=== PATIENT | female | born 1965 | race Hispanic/Latino ===

== ENCOUNTER 2018-11-26 16:34 | Emergency (ER) | payer BC, OTHER ==
[2018-11-26] MEDS ORDERED: DiphenhydrAMINE HCL 50 MG/ML VIAL ONE (18:23)
[2018-11-26] MEDS ORDERED: KETOROLAC TROMETHAMINE 30MG/ML ONE (18:24)
[2018-11-26 18:28] LABS: BASOPHILS % (AUTO) 0.3 % (0.0-5.0); LYMPHOCYTES % (AUTO) 8.2 % (21.0-51.0); MEAN CORPUSCULAR HEMOGLOBIN 26.7 pg (27.0-33.0); MEAN CORPUSCULAR HGB CONC 33.7 g/dL (32.0-36.0); MEAN CORPUSCULAR VOLUME 79.3 fL (79-99); MONOCYTES % (AUTO) 6.7 % (3.0-13.0); NEUTROPHILS % (AUTO) 84.8 % (40.0-77.0); PLATELET COUNT (AUTO) 214 K/uL (130-400); RED BLOOD CELL COUNT(AUTO) 4.41 MIL/uL (4.00-5.50); RED CELL DISTRIBUTION WIDTH 15.3 % (11.0-15.5); WHITE BLOOD COUNT (AUTO) 3.7 K/uL (4.8-10.8)
[2018-11-26 18:39] LABS: CREATININE 1.2 mg/dL (0.5-1.5); POTASSIUM 3.7 mmol/L (3.5-5.1)
[2018-11-26 18:44] LABS: ALBUMIN 3.8 g/dL (3.5-5.0); BILIRUBIN,TOTAL 0.3 mg/dL (0.2-1.0); TOTAL PROTEIN, SERUM 7.9 g/dL (6.0-8.3)
[2018-11-26] MEDS ORDERED: IOHEXOL-350 50ML VIAL IV ONE (18:55)
[2018-11-26 19:47] LABS: APPEARANCE,URINE Clear (CLEAR); BILIRUBIN,URINE Negative (NEGATIVE); COLOR,URINE Yellow (YELLOW); GLUCOSE, URINE (UA) Negative (NEGATIVE); KETONES,URINE Negative (NEGATIVE); LEUKOCYTE ESTERASE ,URINE Moderate (NEGATIVE); NITRATE,URINE Negative (NEGATIVE); OCCULT BLOOD,URINE Negative (NEGATIVE); PH,URINE 6.5 (5.0-8.0); PROTEIN,URINE Negative (NEGATIVE)
[2018-11-26] MEDS ORDERED: CLINDAMYCIN 600 MG/D5% WATER 50 ML IV ONE (19:57)
[2018-11-26 20:15] LABS: BACTERIA,URINE Few /HPF (None Seen); RBC,URINE 0-1 /HPF (0-1)
== END 2018-11-26 21:17 | disposition home or self-care (01) ==
LOC: EDH 16:34
DX: L03.211 Cellulitis of face (principal); I10 Essential (primary) hypertension; Z88.0 Allergy status to penicillin
CPT/HCPCS: 36415; 70487; 80053; 81001; 85025; 87040; 96365; 96375; 99285; J1200; J1885; J3490; Q9967

== ENCOUNTER 2020-04-06 09:00 | Inpatient (IN) | payer BC ==
[~2020-04-06] VITALS: Ht 165.1 cm; Wt 116.7 kg
[2020-04-06] MEDS ORDERED: ONDANSETRON HCL 4 MG/2 ML VIAL ONE ×2 (09:32→21:06)
[2020-04-06 09:46] LABS: BASOPHILS % (AUTO) 0.6 % (0.0-5.0); EOSINOPHILS % (AUTO) 1.6 % (0.0-8.0); HEMATOCRIT 37.9 % (36-48); LYMPHOCYTES % (AUTO) 26.9 % (21.0-51.0); MEAN CORPUSCULAR HEMOGLOBIN 29.5 pg (27.0-33.0); MEAN CORPUSCULAR HGB CONC 33.2 g/dL (32.0-36.0); MEAN CORPUSCULAR VOLUME 88.8 fL (79-99); MONOCYTES % (AUTO) 4.5 % (3.0-13.0); NEUTROPHILS % (AUTO) 65.6 % (40.0-77.0); PLATELET COUNT (AUTO) 276 K/uL (130-400); RED BLOOD CELL COUNT(AUTO) 4.27 MIL/uL (4.00-5.50); RED CELL DISTRIBUTION WIDTH 13.1 % (11.0-15.5)
[2020-04-06 10:16] LABS: ALBUMIN 3.3 g/dL (3.5-5.0); BILIRUBIN,TOTAL 0.3 mg/dL (0.2-1.0); POTASSIUM 3.5 mmol/L (3.5-5.1); TOTAL PROTEIN, SERUM 7.5 g/dL (6.0-8.3)
[2020-04-06] MEDS ORDERED: SODIUM CHLORIDE 0.9% 1000ML 1,000 ML IV ONE (10:29)
[2020-04-06 10:54] LABS: ABG BASE EXCESS 0.4 mmol/L (-2.0-3.0); ABG OXYGEN SATURATION 94.8 % (95.0-99.0); ABG PCO2 40 mmHg (32-45)
[2020-04-06] MEDS ORDERED: ALBUTEROL INHALER 90MCG/INH IH ONE (12:03)
[2020-04-06] MEDS ORDERED: DOXYCYCLINE 100MG+NS 250ML 250 ML IV ONE (12:04)
[2020-04-06 12:33] LABS: MAGNESIUM 2.1 mg/dL (1.80-2.40)
[2020-04-06] MEDS ORDERED: ACETAMINOPHEN 325 MG TAB PO PRN (13:30)
[2020-04-06] MEDS ORDERED: ERGOCALCIFEROL (VITAMIN D2) 50,000 UNIT CAPSULE PO ONE (13:30)
[2020-04-06] MEDS ORDERED: ONDANSETRON HCL 4 MG/2 ML VIAL IV PRN (13:30)
[2020-04-06] MEDS: CEFTRIAXONE SODIUM 1 GM IVP SCH (13:30)
[2020-04-06] MEDS ORDERED: ALBUTEROL INHALER 90MCG/INH IH PRN (13:30)
[2020-04-06] MEDS ORDERED: HYDRALAZINE HCL 20 MG/ML VIAL IV PRN (13:30)
[2020-04-06] MEDS: METHYLPREDNISOLONE SOD SUCC 40MG/ML 1ML IVP SCH ×2 (14:00→21:00)
[2020-04-06] MEDS: BENZONATATE 100 MG CAPSULE PO SCH ×2 (14:00→21:00)
[2020-04-06 14:10] LABS: INR 0.93 (0.85-1.15); PARTIAL THROMBOPLASTIN TIME 28.5 SEC (26.3-35.5); PROTHROMBIN TIME 10.1 SEC (9.6-11.6)
[2020-04-06] MEDS ORDERED: METHYLPREDNISOLONE SOD SUCC 40MG/ML 1ML ONE ×2 (14:11→23:23)
[2020-04-06] MEDS ORDERED: ERGOCALCIFEROL (VITAMIN D2) 50,000 UNIT CAPSULE ONE (14:12)
[2020-04-06] MEDS ORDERED: CEFTRIAXONE SODIUM 1 GM ONE ×2 (14:12→14:17)
[2020-04-06] MEDS ORDERED: SODIUM CHLORIDE 0.9% 100 ML IV ONE (14:13)
[2020-04-06] MEDS ORDERED: ACETAMINOPHEN 325 MG TAB ONE ×2 (14:30→21:07)
[2020-04-06] MEDS ORDERED: IOHEXOL 350 MG/ML 100ML INFUS..BTL IV ONE (15:41)
[2020-04-06] MEDS: INSULIN HUMULIN R 100 UNIT/ML 3ML SQ SCH ×2 (16:30→21:00)
[2020-04-06] MEDS ORDERED: FAMOTIDINE 20MG TAB 20 MG TAB ONE (20:05)
[2020-04-06] MEDS ORDERED: BENZONATATE 100 MG CAPSULE PO ONE ×2 (20:05→20:08)
[2020-04-06] MEDS ORDERED: ENOXAPARIN SODIUM 40 MG/0.4 ML SYRINGE SQ ONE (20:06)
[2020-04-06] MEDS: FAMOTIDINE 20MG TAB 20 MG TAB PO SCH (21:00)
[2020-04-06] MEDS: ACETYLCYSTEINE 600 MG CAPSULE PO SCH (21:00)
[2020-04-06] MEDS: DOXYCYCLINE HYCLATE 100 MG TABLET PO SCH (21:00)
[2020-04-06] MEDS ORDERED: INSULIN HUMULIN R 100 UNIT/ML 3ML ONE (21:08)
[2020-04-06] MEDS ORDERED: DOXYCYCLINE HYCLATE 100 MG TABLET PO ONE (23:31)
[2020-04-07] MEDS ORDERED: HYDROXYZINE HCL 10 MG TABLET ONE (01:11)
[2020-04-07] MEDS: CEFTRIAXONE SODIUM 1 GM IVP SCH ×3 (01:30→20:41)
[2020-04-07 02:10] VITALS: BP 158/69
[2020-04-07] MEDS ORDERED: HYDROXYZINE HCL 25 MG TABLET PO ONE (02:45)
[2020-04-07 05:08] LABS: CRP QUANTITATIVE 15.8 mg/L (0.00-9.0)
[2020-04-07] MEDS: INSULIN HUMULIN R 100 UNIT/ML 3ML SQ SCH ×4 (05:50→21:00)
[2020-04-07 08:00] VITALS: BP 132/69
[2020-04-07] MEDS: ASCORBIC ACID 500 MG TAB PO SCH (09:02)
[2020-04-07] MEDS: FAMOTIDINE 20MG TAB 20 MG TAB PO SCH ×2 (09:02→20:42)
[2020-04-07] MEDS: METHYLPREDNISOLONE SOD SUCC 40MG/ML 1ML IVP SCH ×3 (09:02→20:42)
[2020-04-07] MEDS: ACETYLCYSTEINE 600 MG CAPSULE PO SCH ×2 (09:02→20:43)
[2020-04-07] MEDS: DOXYCYCLINE HYCLATE 100 MG TABLET PO SCH ×2 (09:03→20:42)
[2020-04-07] MEDS: BENZONATATE 100 MG CAPSULE PO SCH ×3 (09:03→20:43)
[2020-04-07] MEDS: ENOXAPARIN SODIUM 40 MG/0.4 ML SYRINGE SQ SCH (09:03)
[2020-04-07] MEDS ORDERED: FLUT1AER IH (09:29)
[2020-04-07] MEDS ORDERED: ALBU90AE2 IH (09:29)
[2020-04-07] MEDS ORDERED: LISI1TAB51 PO (09:29)
[2020-04-07] MEDS ORDERED: METF-444 PO (09:29)
[2020-04-07] MEDS: LISINOPRIL 20 MG TABLET PO SCH (09:45)
[2020-04-07] MEDS: HYDROCHLOROTHIAZIDE 25 MG TABLET PO SCH (09:45)
--- NOTE | 2020-04-07 10:31 | NUR ---
CHART CHECK COMPLETED. Pt IS A 54 Y.O. FEMALE ADMITTED SECONDARY TO COVID 19 POSITIVE, ACUTE RESPIRATORY FAILURE. PT HAS A PAST MEDICAL HISTORY SIGNIFICANT FOR ASTHMA, HYPERTENSION, AND DIABETES MELLITUS. Pt CURRENTLY ON REGULAR TEXTURE, THIN LIQUIDS DIET (CONSISTENT CARB). PLEASE REQUEST A FORMAL SPEECH/SWALLOW EVALUATION IF Pt PRESENTS WITH +S/S OF ASPIRATION SUCH COUGH RESPONSE, THROAT CLEAR OR WET VOCAL QUALITY DURING P.O. INTAKE. Addendum: 04/07/20 at 1048 by TAURUS TIERNEY, SPT ST Amended: Links added.
--- NOTE | 2020-04-07 10:58 | NUR ---
I HAVE SWABED PT'S RIGHT NARE FOR COVID TEST AND SENT TO LAB
[2020-04-07 12:00] VITALS: BP 108/69
[2020-04-07] MEDS: ZINC SULFATE 220 CAPSULE PO SCH (12:20)
[2020-04-07] MEDS: ACETAMINOPHEN 325 MG TAB PO PRN (15:00)
[2020-04-07 16:00] VITALS: BP 132/65
--- NOTE | 2020-04-07 17:24 | NUR ---
SHIFT SUMMARY; PT HAS REMAINED ON O2 2LNC TOLERATING WELL 96% OR GREATER AT REST; TRIAL ON ROOM AIR DONE AND PT SAT WAS 89 TO 94%; SHE EASILY TIRES WHEN AMBULATING; SHE DOES WALK TO BATHROOM ON OWN AND SIT UP IN CHAIR; COVID SWAB SENT IN AM PER DR MUSE REQUEST; PENDING RESULTS OF RETEST; PT BATHED SELF TODAY AND SPOKE OFTEN ON THE PHONE TO HER FAMILY.
[2020-04-07] MEDS: LACTULOSE 20 GM/30 ML UDCUP PO PRN (18:33)
--- NOTE | 2020-04-07 18:50 | NUR ---
PT C/O CONSTIPATION, FIRST PRUNE JUICE GIVEN THEN PT STATED PRUNE JUICE WOULD NOT BE ENOUGH SO LACTULOSE GIVEN.
[2020-04-07 19:00] VITALS: BP 131/74
[2020-04-07] MEDS ORDERED: INSULIN GLARGINE 100 UNITS/ML 10 ML VIAL SQ SCH (21:00)
[2020-04-08] VITALS (7 sets, daily range): BP systolic 123–146; BP diastolic 54–80
[2020-04-08] MEDS: INSULIN HUMULIN R 100 UNIT/ML 3ML SQ SCH ×4 (05:56→21:00)
[2020-04-08] MEDS: LACTULOSE 20 GM/30 ML UDCUP PO PRN (06:40)
[2020-04-08 06:50] LABS: BASOPHILS % (AUTO) 0.1 % (0.0-5.0); HEMATOCRIT 34.8 % (36-48); LYMPHOCYTES % (AUTO) 11.8 % (21.0-51.0); MEAN CORPUSCULAR HEMOGLOBIN 29.9 pg (27.0-33.0); MEAN CORPUSCULAR HGB CONC 33.3 g/dL (32.0-36.0); MEAN CORPUSCULAR VOLUME 89.7 fL (79-99); MONOCYTES % (AUTO) 3.1 % (3.0-13.0); NEUTROPHILS % (AUTO) 84.1 % (40.0-77.0); PLATELET COUNT (AUTO) 277 K/uL (130-400); RED BLOOD CELL COUNT(AUTO) 3.88 MIL/uL (4.00-5.50); RED CELL DISTRIBUTION WIDTH 13.2 % (11.0-15.5)
[2020-04-08 07:20] LABS: ALBUMIN 3.1 g/dL (3.5-5.0); BILIRUBIN,TOTAL 0.2 mg/dL (0.2-1.0); CRP QUANTITATIVE 5.5 mg/L (0.00-9.0); THYROID STIMULATING HORMONE 0.55 uIU/mL (0.36-3.74)
[2020-04-08 07:49] LABS: HEMOGLOBIN A1C 6.6 % (4.0-6.0)
[2020-04-08] MEDS: CEFTRIAXONE SODIUM 1 GM IVP SCH ×2 (09:13→20:59)
[2020-04-08] MEDS: ACETYLCYSTEINE 600 MG CAPSULE PO SCH ×2 (09:13→20:59)
[2020-04-08] MEDS: BENZONATATE 100 MG CAPSULE PO SCH ×3 (09:24→20:59)
[2020-04-08] MEDS: ASCORBIC ACID 500 MG TAB PO SCH (09:24)
[2020-04-08] MEDS: DOXYCYCLINE HYCLATE 100 MG TABLET PO SCH ×2 (09:25→20:59)
[2020-04-08] MEDS: FAMOTIDINE 20MG TAB 20 MG TAB PO SCH ×2 (09:25→20:59)
[2020-04-08] MEDS: HYDROCHLOROTHIAZIDE 25 MG TABLET PO SCH (09:25)
[2020-04-08] MEDS: LISINOPRIL 20 MG TABLET PO SCH (09:25)
[2020-04-08] MEDS: METHYLPREDNISOLONE SOD SUCC 40MG/ML 1ML IVP SCH ×3 (09:26→20:59)
[2020-04-08] MEDS: ENOXAPARIN SODIUM 40 MG/0.4 ML SYRINGE SQ SCH (09:26)
[2020-04-08] MEDS: FLUTICASONE/VILANTEROL 1 EACH AER.POW.BA IH SCH (09:26)
[2020-04-08] MEDS: ACETAMINOPHEN 325 MG TAB PO PRN ×2 (09:40→17:04)
[2020-04-08] MEDS: ZINC SULFATE 220 CAPSULE PO SCH (12:12)
--- NOTE | 2020-04-08 18:51 | NUR ---
DCP CM spoke to pt's spouse discussed dc plans. Pt is independent prior to admission, lives at home and daughter. Denies any equipments/services. Feels safe to go back home, still drives spouse and daughter able to assist with transportation and needs as necessary. DC plan to home once stable. CM to cont to follow up. Addendum: 04/08/20 at 1853 by CAREY WEBER LVN CM Amended: Links added.
[2020-04-08] MEDS ORDERED: INSULIN GLARGINE 100 UNITS/ML 10 ML VIAL SQ SCH (21:00)
--- NOTE | 2020-04-08 21:25 | NUR ---
pt with complaint of chest pain radiating to right arm; pts vitals BP = 153/72, HR = 71, T = 97.9, O2 = 94% on RA and RR = 26; EKG performed at this time resulting NORMAL SINUS RHYTHM and tele monitor contacted and stated pt is sinus rhythm at 73; 2L O2 nasal cannula added, Troponin lab ordered stat and hospitalist paged at [phone]. Jenae RN Hospitalist (Suzanne Chapman) returned page at [phone] and informed of pts complaint (pt now states pain has decreased form 12/25 to 2/10); BUFFING WHEEL RAKER stated to administer Atarax 25mg PO x1 NOW, order nitro patch 0.5mg topical q8 PRN and cardiac panel in the morning if pts Troponin were positive; pt administered Atarax 25mg PO and completed Troponin lab = 0.04; pt resting in bed, no distress noted. Jenae RN
[2020-04-08] MEDS ORDERED: HYDROXYZINE HCL 25 MG TABLET PO SCH (22:00)
[2020-04-09] MEDS ORDERED: NITROGLYCERIN 1GM/1 INCH PACKET TD PRN (00:45)
[2020-04-09 03:48] VITALS: BP 127/47
[2020-04-09 05:27] LABS: BASOPHILS % (AUTO) 0.1 % (0.0-5.0); HEMATOCRIT 37.4 % (36-48); LYMPHOCYTES % (AUTO) 10.8 % (21.0-51.0); MEAN CORPUSCULAR HEMOGLOBIN 29.4 pg (27.0-33.0); MEAN CORPUSCULAR HGB CONC 33.2 g/dL (32.0-36.0); MEAN CORPUSCULAR VOLUME 88.6 fL (79-99); MONOCYTES % (AUTO) 2.4 % (3.0-13.0); NEUTROPHILS % (AUTO) 85.6 % (40.0-77.0); PLATELET COUNT (AUTO) 321 K/uL (130-400); RED BLOOD CELL COUNT(AUTO) 4.22 MIL/uL (4.00-5.50); RED CELL DISTRIBUTION WIDTH 13.2 % (11.0-15.5); WHITE BLOOD COUNT (AUTO) 13.5 K/uL (4.8-10.8)
[2020-04-09] MEDS: INSULIN HUMULIN R 100 UNIT/ML 3ML SQ SCH ×2 (05:50→12:05)
[2020-04-09 06:00] LABS: ALBUMIN 3.3 g/dL (3.5-5.0); BILIRUBIN,TOTAL 0.3 mg/dL (0.2-1.0); CRP QUANTITATIVE 4.6 mg/L (0.00-9.0); POTASSIUM 3.7 mmol/L (3.5-5.1); TOTAL PROTEIN, SERUM 7.6 g/dL (6.0-8.3)
[2020-04-09 08:00] VITALS: BP 151/77
[2020-04-09] MEDS: ACETYLCYSTEINE 600 MG CAPSULE PO SCH (08:40)
[2020-04-09] MEDS: DOXYCYCLINE HYCLATE 100 MG TABLET PO SCH (08:41)
[2020-04-09] MEDS: FAMOTIDINE 20MG TAB 20 MG TAB PO SCH (08:41)
[2020-04-09] MEDS: LISINOPRIL 20 MG TABLET PO SCH (08:41)
[2020-04-09] MEDS: ASCORBIC ACID 500 MG TAB PO SCH (08:41)
[2020-04-09] MEDS: CEFTRIAXONE SODIUM 1 GM IVP SCH (08:42)
[2020-04-09] MEDS: HYDROCHLOROTHIAZIDE 25 MG TABLET PO SCH (08:42)
[2020-04-09] MEDS: ENOXAPARIN SODIUM 40 MG/0.4 ML SYRINGE SQ SCH (08:45)
[2020-04-09] MEDS: FLUTICASONE/VILANTEROL 1 EACH AER.POW.BA IH SCH (08:47)
[2020-04-09] MEDS: BENZONATATE 100 MG CAPSULE PO SCH ×2 (08:47→14:05)
[2020-04-09] MEDS: METHYLPREDNISOLONE SOD SUCC 40MG/ML 1ML IVP SCH ×2 (08:47→14:05)
--- NOTE | 2020-04-09 10:25 | NUR ---
MD MEAD REVIEWED FOR WORK RELEASE FOR [employer]. WILL CONTACT FOR EMAIL TO SEND . Addendum: 04/09/20 at 1038 by HOWIE RENDON RN CM Amended: Links added.
[2020-04-09 11:00] VITALS: BP 146/69
[2020-04-09] MEDS: ZINC SULFATE 220 CAPSULE PO SCH (12:04)
[2020-04-09] MEDS ORDERED: AZIT500T2 PO (15:51)
[2020-04-09] MEDS ORDERED: DEXA6TAB PO (15:51)
[2020-04-09 16:00] VITALS: BP 158/81
--- NOTE | 2020-04-09 16:10 | NUR ---
follow up EKG completed. Pt has denied chest discomfort, pt has remained on room air throughout shift sp02 has been 96-97%. no respiratory distress observed or reported. Discharge orders entered by DELIVERY DEPARTMENT SUPERVISOR. pt updated, pt able to notify family. pt requesting medication for boils on left abdomen, per pt she reported skin boils at time of admission but failed to let physician know upon rounding. paged DELIVERY DEPARTMENT SUPERVISOR for notification, spoke with DELIVERY DEPARTMENT SUPERVISOR will order additional ATB and advised pt to follow up with primary care physician.
[2020-04-09] MEDS ORDERED: DOXY100C2 PO (16:15)
== END 2020-04-09 19:51 | disposition home or self-care (01) | DRG 177 ==
LOC: EDH 09:00 → EDHIP 13:24 → 4DH 04-07 01:03
PROVIDERS: ADMIT Family Medicine; ATTEND Family Medicine
DX: U07.1 COVID-19 (principal); J12.89 Other viral pneumonia; J96.01 Acute respiratory failure with hypoxia; Z68.41 Body mass index [BMI] 40.0-44.9, adult; L03.311 Cellulitis of abdominal wall; E11.9 Type 2 diabetes mellitus without complications; I10 Essential (primary) hypertension; J45.909 Unspecified asthma, uncomplicated; E66.01 Morbid (severe) obesity due to excess calories; L73.9 Follicular disorder, unspecified; F41.9 Anxiety disorder, unspecified; R53.81 Other malaise; Z83.3 Family history of diabetes mellitus
CPT/HCPCS: 36415; 36600; 71045; 71275; 80053; 82550; 82728; 82803; 82948; 83036; 83605; 83615; 83735; 84100; 84145; 84443; 84484; 85025; 85378; 85610; 85730; 86140; 87040; 87486; 87581; 87633; 87798; 93005; 94760; 99291; G0378; J0696; J1650; J1815; J2405; J2920; J3490; J7030; Q9967; U0003

== ENCOUNTER 2022-08-17 21:00 | Emergency (ER) | payer BC ==
[~2022-08-17] VITALS: Ht 167.6 cm; Wt 96.3 kg
[~2022-08-17 21:00] MED LIST: ALBU90AE2 IH; AZIT500T2 PO; DEXA6TAB PO; DOXY100C5 PO; FLUT1AER IH; LISI1TAB51 PO; METF-444 PO
[2022-08-17] MEDS ORDERED: ALBUTEROL INHALER 90MCG/INH IH ONE (21:30)
[2022-08-17 21:47] LABS: BASOPHILS % (AUTO) 0.8 % (0.0-5.0); EOSINOPHILS % (AUTO) 1.9 % (0.0-8.0); HEMATOCRIT 38.6 % (36-48); LYMPHOCYTES % (AUTO) 18.8 % (21.0-51.0); MEAN CORPUSCULAR HEMOGLOBIN 30.1 pg (27.0-33.0); MONOCYTES % (AUTO) 5.6 % (3.0-13.0); NEUTROPHILS % (AUTO) 71.6 % (40.0-77.0); PLATELET COUNT (AUTO) 267 K/uL (130-400); RED BLOOD CELL COUNT(AUTO) 4.49 MIL/uL (4.00-5.50); RED CELL DISTRIBUTION WIDTH 12.8 % (11.0-15.5); WHITE BLOOD COUNT (AUTO) 9.8 K/uL (4.8-10.8)
[2022-08-17 21:58] LABS: APPEARANCE,URINE CLEAR (CLEAR); BILIRUBIN,URINE NEGATIVE (NEGATIVE); COLOR,URINE LIGHT-YELLOW (YELLOW); GLUCOSE, URINE (UA) NEGATIVE (NEGATIVE); KETONES,URINE NEGATIVE (NEGATIVE); LEUKOCYTE ESTERASE ,URINE 75 Leu/uL (NEGATIVE); NITRATE,URINE NEGATIVE (NEGATIVE); OCCULT BLOOD,URINE NEGATIVE (NEGATIVE); PH,URINE 5.5 (5.0-8.0); PROTEIN,URINE NEGATIVE (NEGATIVE); UROBILINOGEN,URINE 0.2 mg/dL (0.2-1.0)
[2022-08-17 22:03] LABS: BACTERIA,URINE RARE /HPF (None Seen); MUCUS,URINE RARE LPF (None Seen); RBC,URINE 0-1 /HPF (0-1)
[2022-08-17 22:05] LABS: POTASSIUM 3.8 mmol/L (3.5-5.1)
[2022-08-17 22:20] LABS: TOTAL PROTEIN, SERUM 7.8 g/dL (6.0-8.3)
[2022-08-17] MEDS ORDERED: GUAIFENESIN-CODEINE 5 ML SYRUP PO ONE (22:30)
[2022-08-17] MEDS ORDERED: AUD IH (23:25)
[2022-08-17 23:34] VITALS: BP 140/69
== END 2022-08-17 23:37 | disposition home or self-care (01) ==
LOC: EDH 21:00
DX: J98.8 Other specified respiratory disorders (principal); J98.01 Acute bronchospasm; B97.89 Other viral agents as the cause of diseases classified elsewhere; E11.9 Type 2 diabetes mellitus without complications; I10 Essential (primary) hypertension; Z79.51 Long term (current) use of inhaled steroids; Z79.52 Long term (current) use of systemic steroids; Z79.84 Long term (current) use of oral hypoglycemic drugs; Z90.710 Acquired absence of both cervix and uterus; Z20.822 Contact with and (suspected) exposure to COVID-19; Z88.0 Allergy status to penicillin
CPT/HCPCS: 99284; 71045; 87635; 84484; 80053; 85025; 87040 ×2; 87077; 87088; 87186; 87804 ×2; 83605; 81001; 36415; 93005; C9803

== ENCOUNTER 2022-12-19 10:09 | Inpatient (IN) | payer BC, OTHER ==
[~2022-12-19] VITALS: Ht 170.2 cm; Wt 96.1 kg
[~2022-12-19 10:09] MED LIST changes: +AUD IH
[2022-12-19 10:33] LABS: BASOPHILS % (AUTO) 0.7 % (0.0-5.0); EOSINOPHILS % (AUTO) 1.3 % (0.0-8.0); HEMATOCRIT 38.6 % (36-48); LYMPHOCYTES % (AUTO) 30.8 % (21.0-51.0); MEAN CORPUSCULAR HEMOGLOBIN 28.6 pg (27.0-33.0); MEAN CORPUSCULAR HGB CONC 34.5 g/dL (32.0-36.0); NEUTROPHILS % (AUTO) 61.9 % (40.0-77.0); PLATELET COUNT (AUTO) 190 K/uL (130-400); RED BLOOD CELL COUNT(AUTO) 4.65 MIL/uL (4.00-5.50); RED CELL DISTRIBUTION WIDTH 12.3 % (11.0-15.5); WHITE BLOOD COUNT (AUTO) 9.5 K/uL (4.8-10.8)
[2022-12-19 10:48] LABS: CREATININE 0.9 mg/dL (0.5-1.5); POTASSIUM 3.6 mmol/L (3.5-5.1)
[2022-12-19 10:50] LABS: INR 0.95 (0.85-1.15); PROTHROMBIN TIME 10.4 SEC (9.6-11.6)
[2022-12-19 10:51] LABS: PARTIAL THROMBOPLASTIN TIME 29.1 SEC (26.3-35.5)
[2022-12-19 10:56] LABS: ALBUMIN 3.8 g/dL (3.5-5.0); TOTAL PROTEIN, SERUM 7.6 g/dL (6.0-8.3)
[2022-12-19 11:07] LABS: B-TYPE NATRIURETIC PEPTIDE 31 pg/mL (0-100)
[2022-12-19] MEDS ORDERED: IOHEXOL 350 MG/ML 100ML INFUS..BTL IV ONE (11:16)
[2022-12-19] MEDS ORDERED: ASPIRIN 81MG CHEW TAB PO ONE (12:00)
[2022-12-19] MEDS ORDERED: ONDANSETRON 4MG INJ IVP PRN (12:30)
[2022-12-19] MEDS ORDERED: ACETAMINOPHEN 325 MG TAB PO PRN (12:30)
[2022-12-19 14:10] LABS: HEMOGLOBIN A1C 6.5 % (4.0-6.0)
[2022-12-19] MEDS ORDERED: POTASSIUM CHLORIDE 10% ELIXIR 20 MEQ/15 ML UDCUP PO PRN (15:00)
[2022-12-19] MEDS ORDERED: MAGNESIUM 2GM PREMIX 50ML 50 ML IV PRN (15:00)
[2022-12-19] MEDS ORDERED: LIDOCAINE HCL-MPF 1% 2ML VIAL IV PRN (15:00)
[2022-12-19] MEDS ORDERED: POTASSIUM CHLORIDE 20MEQ/100ML 100 ML IV PRN (15:00)
[2022-12-19] MEDS: NITROGLYCERIN 1GM OINT 1 INCH/1GM TD SCH ×2 (15:20→23:25)
[2022-12-19 15:27] LABS: CHOLESTEROL 159 mg/dL (<200); HDL CHOLESTEROL 34 mg/dL (35-85); LDL DIRECT 104 mg/dL (0-99); TRIGLYCERIDES 124 mg/dL (30-200)
[2022-12-19] MEDS: INSULIN HUMULIN R 100 UNIT/ML 3ML SQ SCH ×2 (16:29→20:59)
[2022-12-19] MEDS: HEPARIN 5,000 UNIT VIAL SQ SCH (16:31)
[2022-12-19] MEDS: ATORVASTATIN 40 MG TABLET PO SCH (20:07)
[2022-12-19 20:59] VITALS: BP 104/68
[2022-12-19] MEDS: ACETAMINOPHEN 325 MG TAB PO PRN (21:33)
[2022-12-20] VITALS (7 sets, daily range): BP systolic 120–174; BP diastolic 48–97
[2022-12-20] MEDS: HEPARIN 5,000 UNIT VIAL SQ SCH ×3 (04:41→20:26)
[2022-12-20 05:53] LABS: HEMATOCRIT 37.8 % (36-48); MEAN CORPUSCULAR HEMOGLOBIN 28.7 pg (27.0-33.0); MEAN CORPUSCULAR HGB CONC 34.7 g/dL (32.0-36.0); MEAN CORPUSCULAR VOLUME 82.7 fL (79-99); RED BLOOD CELL COUNT(AUTO) 4.57 MIL/uL (4.00-5.50); RED CELL DISTRIBUTION WIDTH 12.3 % (11.0-15.5); WHITE BLOOD COUNT (AUTO) 8.5 K/uL (4.8-10.8)
[2022-12-20 06:08] LABS: ALBUMIN 3.6 g/dL (3.5-5.0); CREATININE 0.9 mg/dL (0.5-1.5); POTASSIUM 3.7 mmol/L (3.5-5.1); TOTAL PROTEIN, SERUM 7.3 g/dL (6.0-8.3)
[2022-12-20] MEDS: NITROGLYCERIN 1GM OINT 1 INCH/1GM TD SCH (06:10)
[2022-12-20] MEDS: INSULIN HUMULIN R 100 UNIT/ML 3ML SQ SCH ×4 (06:10→21:00)
[2022-12-20 06:11] LABS: INR 0.95 (0.85-1.15); PROTHROMBIN TIME 10.4 SEC (9.6-11.6)
[2022-12-20] MEDS ORDERED: ASPIRIN 81 MG EC TAB PO SCH (09:00)
[2022-12-20] MEDS ORDERED: CLOPIDOGREL 75MG TAB PO SCH (09:00)
[2022-12-20] MEDS: ASPIRIN 325MG EC TAB PO SCH (09:02)
[2022-12-20] MEDS: FAMOTIDINE 20MG VIAL IV SCH ×2 (09:02→22:47)
[2022-12-20] MEDS: ACETAMINOPHEN 325 MG TAB PO PRN ×2 (09:04→22:54)
[2022-12-20] MEDS: ATORVASTATIN 40 MG TABLET PO SCH (22:47)
[2022-12-20] MEDS: KCL 20 MEQ ERTAB PO PRN (22:48)
[2022-12-21] MEDS: INSULIN HUMULIN R 100 UNIT/ML 3ML SQ SCH ×4 (01:04→21:00)
[2022-12-21 02:56] LABS: APPEARANCE,URINE CLEAR (CLEAR); BILIRUBIN,URINE NEGATIVE (NEGATIVE); COLOR,URINE LIGHT-YELLOW (YELLOW); GLUCOSE, URINE (UA) NEGATIVE (NEGATIVE); KETONES,URINE NEGATIVE (NEGATIVE); LEUKOCYTE ESTERASE ,URINE 25 Leu/uL (NEGATIVE); NITRATE,URINE NEGATIVE (NEGATIVE); OCCULT BLOOD,URINE NEGATIVE (NEGATIVE); PROTEIN,URINE NEGATIVE (NEGATIVE); UROBILINOGEN,URINE 0.2 mg/dL (0.2-1.0)
[2022-12-21 02:59] LABS: BACTERIA,URINE FEW /HPF (None Seen); MUCUS,URINE RARE LPF (None Seen); RBC,URINE 0-1 /HPF (0-1); SQUAMOUS EPITHELIAL CELL,UR RARE /HPF (0-2)
[2022-12-21 03:32] VITALS: BP 163/76
[2022-12-21] MEDS: MORPHINE 2 MG SYG IVP PRN ×3 (03:57→23:21)
[2022-12-21] MEDS ORDERED: NITROGLYCERIN 1GM OINT 1 INCH/1GM TD ONE (04:00)
[2022-12-21] MEDS ORDERED: ASPIRIN 81MG CHEW TAB PO ONE (04:00)
[2022-12-21 08:00] VITALS: BP 145/84
[2022-12-21] MEDS: ASPIRIN 325MG EC TAB PO SCH (08:03)
[2022-12-21] MEDS: FAMOTIDINE 20MG VIAL IV SCH ×2 (08:39→22:41)
[2022-12-21] MEDS ORDERED: REGADENOSON 0.4 MG/5 ML PF SYG IVP SCH (09:00)
[2022-12-21 12:00] VITALS: BP 138/75
[2022-12-21] MEDS ORDERED: ATOR40TA69 PO (12:12)
[2022-12-21] MEDS ORDERED: ASPI-891 PO (12:12)
[2022-12-21] MEDS: HYDROCHLOROTHIAZIDE 25 MG TABLET PO SCH (14:34)
[2022-12-21] MEDS: LISINOPRIL 20 MG TABLET PO SCH (14:36)
[2022-12-21] MEDS: HEPARIN 5,000 UNIT VIAL SQ SCH (14:37)
[2022-12-21 16:00] VITALS: BP 154/78
[2022-12-21 20:08] VITALS: BP 136/69
[2022-12-21] MEDS: ATORVASTATIN 40 MG TABLET PO SCH (22:39)
[2022-12-21 23:36] VITALS: BP 157/62
[2022-12-22] VITALS (15 sets, daily range): BP systolic 122–154; BP diastolic 62–87
[2022-12-22] MEDS: HEPARIN 5,000 UNIT VIAL SQ SCH ×2 (04:30→16:30)
[2022-12-22] MEDS: INSULIN HUMULIN R 100 UNIT/ML 3ML SQ SCH ×3 (05:22→16:30)
[2022-12-22] MEDS ORDERED: 0.9% NACL 500ML IV.SOLN 500 ML IV SCH (08:30)
[2022-12-22 08:53] LABS: HEMATOCRIT 41.9 % (36-48); MEAN CORPUSCULAR HEMOGLOBIN 28.8 pg (27.0-33.0); MEAN CORPUSCULAR HGB CONC 33.7 g/dL (32.0-36.0); MEAN CORPUSCULAR VOLUME 85.5 fL (79-99); RED BLOOD CELL COUNT(AUTO) 4.9 MIL/uL (4.00-5.50); RED CELL DISTRIBUTION WIDTH 12.2 % (11.0-15.5); WHITE BLOOD COUNT (AUTO) 9.2 K/uL (4.8-10.8)
[2022-12-22] MEDS: LISINOPRIL 20 MG TABLET PO SCH (09:00)
[2022-12-22] MEDS: ASPIRIN 325MG EC TAB PO SCH (09:00)
[2022-12-22] MEDS: FAMOTIDINE 20MG VIAL IV SCH (09:00)
[2022-12-22] MEDS: HYDROCHLOROTHIAZIDE 25 MG TABLET PO SCH (09:00)
[2022-12-22 09:05] LABS: INR 0.97 (0.85-1.15); POTASSIUM 3.3 mmol/L (3.5-5.1); PROTHROMBIN TIME 10.6 SEC (9.6-11.6)
[2022-12-22] MEDS ORDERED: LIDOCAINE HCL 400MG/20ML VIAL ONE (09:06)
[2022-12-22] MEDS ORDERED: VERAPAMIL HCL 2.5 MG/ML VIAL ONE (09:06)
[2022-12-22] MEDS ORDERED: HEPARIN 10,000 UNIT/10ML (1,000 UNIT/ML) VIAL ONE (09:06)
[2022-12-22] MEDS ORDERED: NITROGLYCERIN 50MG VIAL ONE (09:06)
[2022-12-22] MEDS ORDERED: IOHEXOL-350 75 ML VIAL IV ONE (09:10)
[2022-12-22] MEDS ORDERED: MIDAZOLAM HCL 1 MG/ML 2ML VIAL ONE (09:32)
[2022-12-22] MEDS ORDERED: FENTANYL CITRATE PF 50 MCG/1 ML 2ML VIAL ONE (09:33)
[2022-12-22] MEDS ORDERED: DEXTROSE 50%-WATER 50 ML DISP.SYRIN IV PRN ×2 (10:30)
[2022-12-22] MEDS ORDERED: GLUCAGON 1MG KIT 1 MG ML IM PRN ×2 (10:30)
[2022-12-22] MEDS ORDERED: 0.9%NACL 1000ML 1,000 ML IV SCH (10:30)
[2022-12-22] MEDS: KCL 20 MEQ ERTAB PO PRN ×2 (11:50→17:04)
[2022-12-22] MEDS: MORPHINE 2 MG SYG IVP PRN (11:51)
== END 2022-12-22 17:30 | disposition home or self-care (01) | DRG 66 ==
LOC: EDH 10:09 → EDHIP 11:41 → 3DH 17:30
PROVIDERS: ADMIT Hospitalist; ATTEND Hospitalist
PROC: 4A023N7 Measurement of Cardiac Sampling and Pressure, Left Heart, Percutaneous Approach (ICD-10-PCS; principal; 2022-12-22)
PROC: B2111ZZ Fluoroscopy of Multiple Coronary Arteries using Low Osmolar Contrast (ICD-10-PCS; 2022-12-22)
DX: I63.9 Cerebral infarction, unspecified (principal); E78.5 Hyperlipidemia, unspecified; I10 Essential (primary) hypertension; E66.09 Other obesity due to excess calories; R07.89 Other chest pain; E11.9 Type 2 diabetes mellitus without complications; Z82.49 Family history of ischemic heart disease and other diseases of the circulatory system; Z83.3 Family history of diabetes mellitus; Z68.33 Body mass index [BMI] 33.0-33.9, adult
CPT/HCPCS: 36415; 70450; 70496; 70498; 70551; 71045; 78452; 80048; 80053; 80061; 81001; 82550; 82948; 83036; 83721; 83874; 83880; 84484; 85025; 85027; 85610; 85730; 92507; 92522; 92610; 93005; 93017; 93306; 93356; 93458; 93880; 96374; 99156; 99157; A9500; C1769; G0378; J1644; J1815; J2250; J2785; J3010; J3490; Q9967

== ENCOUNTER → 2023-06-20 | Outpatient (CLI) | payer OTHER ==
[~2023-06-20] MED LIST changes: +ASPI-891 PO; +ATOR40TA69 PO; -AZIT500T2 PO; -DEXA6TAB PO; -DOXY100C5 PO; -FLUT1AER IH; +IBUP-2070 PO; +NITR100C4 PO; +ONDA4TAB10 PO
== END | disposition home or self-care (01) ==
LOC: RAH 14:01
PROVIDERS: ATTEND Family Medicine
DX: Z12.31 Encounter for screening mammogram for malignant neoplasm of breast (principal)
CPT/HCPCS: 77067

== ENCOUNTER 2023-06-22 19:17 | Emergency (ER) | payer OTHER ==
[~2023-06-22] VITALS: Ht 167.6 cm; Wt 97.1 kg
[~2023-06-22 19:17] MED LIST changes: -IBUP-2070 PO; -NITR100C4 PO; -ONDA4TAB10 PO
[2023-06-22 19:44] LABS: APPEARANCE,URINE CLEAR (CLEAR); BILIRUBIN,URINE NEGATIVE (NEGATIVE); COLOR,URINE LIGHT-YELLOW (YELLOW); GLUCOSE, URINE (UA) NEGATIVE (NEGATIVE); KETONES,URINE NEGATIVE (NEGATIVE); LEUKOCYTE ESTERASE ,URINE 250 Leu/uL (NEGATIVE); NITRATE,URINE NEGATIVE (NEGATIVE); OCCULT BLOOD,URINE NEGATIVE (NEGATIVE); PH,URINE 5.5 (5.0-8.0); PROTEIN,URINE NEGATIVE (NEGATIVE); UROBILINOGEN,URINE 0.2 mg/dL (0.2-1.0)
[2023-06-22 19:45] LABS: ADD UA MICROSCOPIC YES
[2023-06-22 19:48] LABS: BACTERIA,URINE FEW /HPF (None Seen); MUCUS,URINE RARE LPF (None Seen); RBC,URINE 0-1 /HPF (0-1); SQUAMOUS EPITHELIAL CELL,UR FEW /HPF (0-2)
[2023-06-22 19:57] LABS: BASOPHILS # (AUTO) 0.08 K/uL (0.00-0.20); BASOPHILS % (AUTO) 0.7 % (0.0-5.0); EOSINOPHILS # (AUTO) 0.11 K/uL (0.00-0.70); HEMATOCRIT 37.4 % (36-48); IMMATURE GRANULOCYTE ABSOLUTE 0.03 K/uL (0-1); LYMPHOCYTES # (AUTO) 3.8 K/uL (1.0-4.8); LYMPHOCYTES % (AUTO) 34.7 % (21.0-51.0); MEAN CORPUSCULAR VOLUME 82.9 fL (79-99); MONOCYTES # (AUTO) 0.5 K/uL (0.1-1.0); MONOCYTES % (AUTO) 4.4 % (3.0-13.0); NEUTROPHILS # (AUTO) 6.4 K/uL (1.8-7.7); NEUTROPHILS % (AUTO) 58.9 % (40.0-77.0); PLATELET COUNT (AUTO) 203 K/uL (130-400); RED BLOOD CELL COUNT(AUTO) 4.51 MIL/uL (4.00-5.50); RED CELL DISTRIBUTION WIDTH 12.6 % (11.0-15.5); WHITE BLOOD COUNT (AUTO) 10.9 K/uL (4.8-10.8)
[2023-06-22] MEDS ORDERED: KETOROLAC 15MG/ML VIAL (15MG/ML) IV ONE (20:00)
[2023-06-22] MEDS ORDERED: 0.9%NACL 1000ML 1,000 ML IV ONE (20:00)
[2023-06-22] MEDS ORDERED: CEFTRIAXONE 1G VIAL IVPB ONE (20:00)
[2023-06-22 20:04] LABS: CREATININE 0.9 mg/dL (0.5-1.5); POTASSIUM 3.5 mmol/L (3.5-5.1)
[2023-06-22] MEDS ORDERED: KETOROLAC 60 MG VIAL (30MG/ML) IM ONE (20:04)
[2023-06-22 20:08] LABS: ALBUMIN 3.8 g/dL (3.5-5.0); BILIRUBIN,TOTAL 0.5 mg/dL (0.2-1.0); TOTAL PROTEIN, SERUM 7.8 g/dL (6.0-8.3)
[2023-06-22] MEDS ORDERED: ONDA4TAB10 PO (20:42)
[2023-06-22] MEDS ORDERED: IBUP-2070 PO (20:42)
[2023-06-22] MEDS ORDERED: NITR100C4 PO (20:42)
[2023-06-22 21:05] VITALS: BP 157/77; PULSE 81; RESP 16; O2SAT 97
== END 2023-06-22 21:07 | disposition home or self-care (01) ==
LOC: EDH 19:17
DX: N39.0 Urinary tract infection, site not specified (principal); I10 Essential (primary) hypertension; E11.9 Type 2 diabetes mellitus without complications; Z79.82 Long term (current) use of aspirin; Z79.84 Long term (current) use of oral hypoglycemic drugs; Z79.899 Other long term (current) drug therapy; Z98.890 Other specified postprocedural states; Z90.710 Acquired absence of both cervix and uterus; Z88.0 Allergy status to penicillin
CPT/HCPCS: 99284; 96365; 96375; 80053; 85025; 87077; 87088; 87186; 81001; 36415; J7030; J0696; J1885

== ENCOUNTER 2023-06-24 23:34 | Emergency (ER) | payer OTHER ==
[~2023-06-24] VITALS: Ht 167.6 cm; Wt 97.2 kg
[~2023-06-24 23:34] MED LIST changes: +IBUP-2070 PO; +NITR100C4 PO; +ONDA4TAB10 PO
[2023-06-24] MEDS ORDERED: KETOROLAC 60 MG VIAL (30MG/ML) IM ONE (23:59)
[2023-06-25] MEDS ORDERED: KETOROLAC 30MG VIAL (30MG/ML) IVP ONE
[2023-06-25] MEDS ORDERED: METOCLOPRAMIDE 10 MG/2 ML VIAL IVP ONE
[2023-06-25 00:11] LABS: BASOPHILS # (AUTO) 0.05 K/uL (0.00-0.20); BASOPHILS % (AUTO) 0.6 % (0.0-5.0); EOSINOPHILS # (AUTO) 0.11 K/uL (0.00-0.70); EOSINOPHILS % (AUTO) 1.3 % (0.0-8.0); HEMATOCRIT 37.3 % (36-48); IMMATURE GRANULOCYTE ABSOLUTE 0.04 K/uL (0-1); LYMPHOCYTES # (AUTO) 3.2 K/uL (1.0-4.8); LYMPHOCYTES % (AUTO) 37.1 % (21.0-51.0); MEAN CORPUSCULAR HEMOGLOBIN 29.5 pg (27.0-33.0); MEAN CORPUSCULAR HGB CONC 35.7 g/dL (32.0-36.0); MEAN CORPUSCULAR VOLUME 82.7 fL (79-99); MONOCYTES # (AUTO) 0.4 K/uL (0.1-1.0); MONOCYTES % (AUTO) 4.9 % (3.0-13.0); NEUTROPHILS # (AUTO) 4.7 K/uL (1.8-7.7); NEUTROPHILS % (AUTO) 55.6 % (40.0-77.0); PLATELET COUNT (AUTO) 188 K/uL (130-400); RED BLOOD CELL COUNT(AUTO) 4.51 MIL/uL (4.00-5.50); RED CELL DISTRIBUTION WIDTH 12.5 % (11.0-15.5); WHITE BLOOD COUNT (AUTO) 8.5 K/uL (4.8-10.8)
[2023-06-25 00:29] LABS: ALBUMIN 3.5 g/dL (3.5-5.0); BILIRUBIN,TOTAL 0.3 mg/dL (0.2-1.0); POTASSIUM 3.8 mmol/L (3.5-5.1); TOTAL PROTEIN, SERUM 7.5 g/dL (6.0-8.3)
[2023-06-25 00:34] LABS: APPEARANCE,URINE CLEAR (CLEAR); BILIRUBIN,URINE NEGATIVE (NEGATIVE); COLOR,URINE COLORLESS (YELLOW); GLUCOSE, URINE (UA) >=1000 mg/dL (NEGATIVE); KETONES,URINE NEGATIVE (NEGATIVE); LEUKOCYTE ESTERASE ,URINE NEGATIVE Leu/uL (NEGATIVE); NITRATE,URINE NEGATIVE (NEGATIVE); OCCULT BLOOD,URINE NEGATIVE (NEGATIVE); PH,URINE 6.5 (5.0-8.0); PROTEIN,URINE NEGATIVE (NEGATIVE); UROBILINOGEN,URINE 0.2 mg/dL (0.2-1.0)
[2023-06-25 00:36] LABS: ADD UA MICROSCOPIC YES
[2023-06-25 00:47] LABS: SQUAMOUS EPITHELIAL CELL,UR FEW /HPF (0-2)
[2023-06-25] MEDS ORDERED: MORPHINE 4 MG SYG IVP ONE (01:00)
[2023-06-25] MEDS ORDERED: INSULIN HUMULIN R 100 UNIT/ML 3ML IV ONE (01:00)
[2023-06-25 01:01] LABS: ABG BASE EXCESS 2.6 mmol/L (-2.0-3.0); ABG HCO3 27.3 mmol/L (21.0-28.0); ABG OXYGEN SATURATION 95.3 % (95.0-99.0); ABG PCO2 42 mmHg (32-45); ABG PH 7.427 (7.35-7.450); DEVICE COMMENT ROOM AIR; PO2, ARTERIAL BG 74.6 mmHg (83.0-108.0); VENT MODE, BG ROOM AIR (ROOM AIR)
[2023-06-25 02:13] VITALS: BP 143/77; PULSE 74; RESP 18; O2SAT 97
== END 2023-06-25 02:19 | disposition home or self-care (01) ==
LOC: EDH 23:34
DX: K46.9 Unspecified abdominal hernia without obstruction or gangrene (principal); E11.65 Type 2 diabetes mellitus with hyperglycemia; Z79.82 Long term (current) use of aspirin; Z79.84 Long term (current) use of oral hypoglycemic drugs; Z79.899 Other long term (current) drug therapy; Z90.710 Acquired absence of both cervix and uterus; Z98.890 Other specified postprocedural states; Z88.0 Allergy status to penicillin
CPT/HCPCS: 99285; 74176; 80053; 82803; 85025; 82948; 82010; 81001; 36415 ×2; 96374; 96375; 36600; J1885; J2765; J1815; J2270

== ENCOUNTER 2023-11-17 21:32 | Emergency (ER) | payer OTHER ==
[~2023-11-17] VITALS: Ht 167.6 cm; Wt 95.3 kg
[~2023-11-17 21:32] MED LIST changes: -NITR100C4 PO
[2023-11-17 21:59] VITALS: BP 143/72; PULSE 82; RESP 18
[2023-11-17] MEDS: CYCLOBENZAPRINE HCL 10 MG TABLET PO ONE (22:46)
[2023-11-17] MEDS: DEXAMETHASONE SOD PHOSPHATE 4 MG/ML 1ML VIAL IM ONE (22:46)
[2023-11-17] MEDS: KETOROLAC 60 MG VIAL (30MG/ML) IM ONE (22:46)
[2023-11-17] MEDS ORDERED: CYCL-309 PO (23:32)
[2023-11-17] MEDS ORDERED: IBUP-2077 PO (23:32)
[2023-11-17] MEDS ORDERED: METH4TAB3 PO (23:32)
== END 2023-11-17 23:35 | disposition home or self-care (01) ==
LOC: EDH 21:32
DX: G89.29 Other chronic pain (principal); M54.42 Lumbago with sciatica, left side; I10 Essential (primary) hypertension; E11.9 Type 2 diabetes mellitus without complications; Z79.82 Long term (current) use of aspirin; Z79.84 Long term (current) use of oral hypoglycemic drugs; Z79.899 Other long term (current) drug therapy; Z98.890 Other specified postprocedural states; Z88.0 Allergy status to penicillin
CPT/HCPCS: 99285; 93971; 96372 ×2; J1100; J1885

== ENCOUNTER 2023-11-28 22:58 | Emergency (ER) | payer OTHER ==
[~2023-11-28] VITALS: Ht 167.6 cm; Wt 95.3 kg
[~2023-11-28 22:58] MED LIST changes: +CYCL-309 PO; +IBUP-2077 PO; +METH4TAB3 PO
[2023-11-28 23:45] LABS: BASOPHILS # (AUTO) 0.07 K/uL (0.00-0.20); BASOPHILS % (AUTO) 0.8 % (0.0-5.0); EOSINOPHILS # (AUTO) 0.07 K/uL (0.00-0.70); EOSINOPHILS % (AUTO) 0.8 % (0.0-8.0); HEMATOCRIT 35.9 % (36-48); IMMATURE GRANULOCYTE ABSOLUTE 0.05 K/uL (0-1); LYMPHOCYTES # (AUTO) 2.9 K/uL (1.0-4.8); LYMPHOCYTES % (AUTO) 34.9 % (21.0-51.0); MEAN CORPUSCULAR HGB CONC 35.7 g/dL (32.0-36.0); MEAN CORPUSCULAR VOLUME 84.1 fL (79-99); MONOCYTES # (AUTO) 0.5 K/uL (0.1-1.0); MONOCYTES % (AUTO) 5.6 % (3.0-13.0); NEUTROPHILS # (AUTO) 4.7 K/uL (1.8-7.7); NEUTROPHILS % (AUTO) 57.3 % (40.0-77.0); PLATELET COUNT (AUTO) 186 K/uL (130-400); RED BLOOD CELL COUNT(AUTO) 4.27 MIL/uL (4.00-5.50); RED CELL DISTRIBUTION WIDTH 12.4 % (11.0-15.5); WHITE BLOOD COUNT (AUTO) 8.3 K/uL (4.8-10.8)
[2023-11-28 23:55] LABS: INR <= 0.93 (0.85-1.15); PROTHROMBIN TIME 10.6 SEC (9.6-11.6)
[2023-11-28 23:56] LABS: CREATININE 1.3 mg/dL (0.5-1.5); POTASSIUM 3.6 mmol/L (3.5-5.1)
[2023-11-28 23:57] LABS: PARTIAL THROMBOPLASTIN TIME 29.9 SEC (26.3-35.5)
[2023-11-29] MEDS: HYDROCODONE/ACETAMINOPHEN 5/325 MG TAB PO ONE (00:57)
[2023-11-29] MEDS: 0.9%NACL 1000ML 1,000 ML IV ONE (00:58)
[2023-11-29] MEDS: INSULIN HUMULIN R 100 UNIT/ML 3ML IV ONE (00:59)
[2023-11-29] MEDS ORDERED: DOXY100T2 PO (01:06)
[2023-11-29] MEDS: DOXYCYCLINE HYCLATE 100 MG TABLET PO SCH (01:16)
[2023-11-29 02:13] VITALS: BP 148/87; PULSE 85; RESP 18; O2SAT 97
== END 2023-11-29 02:14 | disposition home or self-care (01) ==
LOC: EDH 22:58
DX: L03.311 Cellulitis of abdominal wall (principal); M79.652 Pain in left thigh; E11.65 Type 2 diabetes mellitus with hyperglycemia; I10 Essential (primary) hypertension; Z79.82 Long term (current) use of aspirin; Z79.84 Long term (current) use of oral hypoglycemic drugs; Z79.899 Other long term (current) drug therapy; Z98.890 Other specified postprocedural states; Z88.0 Allergy status to penicillin; Z88.1 Allergy status to other antibiotic agents
CPT/HCPCS: 99285; 93971; 80048; 85025; 85610; 85730; 82010; 36415 ×2; 96374; J1815; J7030

== ENCOUNTER 2024-03-01 16:03 | Emergency (ER) | payer OTHER ==
[~2024-03-01] VITALS: Ht 165.1 cm; Wt 99.8 kg
[~2024-03-01 16:03] MED LIST changes: -ALBU90AE2 IH; +ALBU90AE3 IH; +DOXY100T2 PO; +ONDA-243 PO; -ONDA4TAB10 PO
[2024-03-01 17:05] LABS: BASOPHILS # (AUTO) 0.05 K/uL (0.00-0.20); BASOPHILS % (AUTO) 0.5 % (0.0-5.0); EOSINOPHILS # (AUTO) 0.14 K/uL (0.00-0.70); EOSINOPHILS % (AUTO) 1.4 % (0.0-8.0); HEMATOCRIT 39.6 % (36-48); IMMATURE GRANULOCYTE ABSOLUTE 0.07 K/uL (0-1); LYMPHOCYTES # (AUTO) 3.4 K/uL (1.0-4.8); LYMPHOCYTES % (AUTO) 33.1 % (21.0-51.0); MEAN CORPUSCULAR HEMOGLOBIN 28.4 pg (27.0-33.0); MEAN CORPUSCULAR HGB CONC 35.4 g/dL (32.0-36.0); MEAN CORPUSCULAR VOLUME 80.3 fL (79-99); MONOCYTES # (AUTO) 0.6 K/uL (0.1-1.0); MONOCYTES % (AUTO) 5.5 % (3.0-13.0); NEUTROPHILS # (AUTO) 6.1 K/uL (1.8-7.7); NEUTROPHILS % (AUTO) 58.8 % (40.0-77.0); PLATELET COUNT (AUTO) 206 K/uL (130-400); RED BLOOD CELL COUNT(AUTO) 4.93 MIL/uL (4.00-5.50); RED CELL DISTRIBUTION WIDTH 12.1 % (11.0-15.5); WHITE BLOOD COUNT (AUTO) 10.4 K/uL (4.8-10.8)
[2024-03-01 17:28] LABS: CREATININE 0.9 mg/dL (0.5-1.0); POTASSIUM 3.2 mmol/L (3.5-5.1)
[2024-03-01] MEDS: PANTOPRAZOLE 40 MG/VIAL IVP ONE (17:54)
[2024-03-01] MEDS: LACTATED RINGERS 1000ML 1,000 ML IV ONE (17:54)
[2024-03-01] MEDS: DICYCLOMINE 20MG (10MG/ML) AMP IM ONE (17:54)
[2024-03-01 18:00] LABS: APPEARANCE,URINE CLEAR (CLEAR); BILIRUBIN,URINE NEGATIVE (NEGATIVE); COLOR,URINE LIGHT-YELLOW (YELLOW); GLUCOSE, URINE (UA) NEGATIVE (NEGATIVE); KETONES,URINE NEGATIVE (NEGATIVE); LEUKOCYTE ESTERASE ,URINE NEGATIVE Leu/uL (NEGATIVE); NITRATE,URINE NEGATIVE (NEGATIVE); OCCULT BLOOD,URINE NEGATIVE (NEGATIVE); PH,URINE 6.5 (5.0-8.0); PROTEIN,URINE NEGATIVE (NEGATIVE); UROBILINOGEN,URINE 0.2 mg/dL (0.2-1.0)
[2024-03-01 18:13] LABS: ADD UA MICROSCOPIC YES
[2024-03-01 18:25] LABS: BACTERIA,URINE RARE /HPF (None Seen); SQUAMOUS EPITHELIAL CELL,UR RARE /HPF (0-2); WBC,URINE 0-1 /HPF (0-1)
[2024-03-01] MEDS ORDERED: PANT40TA55 PO (18:33)
[2024-03-01 18:42] VITALS: BP 152/82; PULSE 70; RESP 18; O2SAT 98
== END 2024-03-01 18:55 | disposition home or self-care (01) ==
LOC: EDH 16:03
DX: A08.4 Viral intestinal infection, unspecified (principal); E11.9 Type 2 diabetes mellitus without complications; I10 Essential (primary) hypertension; Z79.82 Long term (current) use of aspirin; Z79.84 Long term (current) use of oral hypoglycemic drugs; Z79.899 Other long term (current) drug therapy; Z88.0 Allergy status to penicillin; Z88.1 Allergy status to other antibiotic agents
CPT/HCPCS: 99284; 96374; 96361; 82550; 84484; 80048; 83690; 85025; 81001; 36415; 93005; 96372; J7120; C9113; J0500

== ENCOUNTER 2024-05-04 21:56 | Emergency (ER) | payer OTHER ==
[~2024-05-04] VITALS: Ht 165.1 cm; Wt 97.5 kg
[~2024-05-04 21:56] MED LIST changes: +PANT40TA55 PO
[2024-05-04 22:21] LABS: APPEARANCE,URINE CLEAR (CLEAR); BILIRUBIN,URINE NEGATIVE (NEGATIVE); COLOR,URINE LIGHT-YELLOW (YELLOW); GLUCOSE, URINE (UA) 200 mg/dL (NEGATIVE); KETONES,URINE NEGATIVE (NEGATIVE); LEUKOCYTE ESTERASE ,URINE 75 Leu/uL (NEGATIVE); NITRATE,URINE NEGATIVE (NEGATIVE); OCCULT BLOOD,URINE NEGATIVE (NEGATIVE); PH,URINE 5.5 (5.0-8.0); PROTEIN,URINE NEGATIVE (NEGATIVE); UROBILINOGEN,URINE 0.2 mg/dL (0.2-1.0)
[2024-05-04 22:28] LABS: BASOPHILS # (AUTO) 0.05 K/uL (0.00-0.20); BASOPHILS % (AUTO) 0.6 % (0.0-5.0); EOSINOPHILS # (AUTO) 0.15 K/uL (0.00-0.70); EOSINOPHILS % (AUTO) 1.8 % (0.0-8.0); HEMATOCRIT 34.3 % (36-48); IMMATURE GRANULOCYTE ABSOLUTE 0.11 K/uL (0-1); LYMPHOCYTES % (AUTO) 35.9 % (21.0-51.0); MEAN CORPUSCULAR HEMOGLOBIN 29.4 pg (27.0-33.0); MEAN CORPUSCULAR HGB CONC 34.7 g/dL (32.0-36.0); MEAN CORPUSCULAR VOLUME 84.7 fL (79-99); MONOCYTES # (AUTO) 0.3 K/uL (0.1-1.0); MONOCYTES % (AUTO) 3.9 % (3.0-13.0); NEUTROPHILS # (AUTO) 4.8 K/uL (1.8-7.7); NEUTROPHILS % (AUTO) 56.5 % (40.0-77.0); PLATELET COUNT (AUTO) 211 K/uL (130-400); RED BLOOD CELL COUNT(AUTO) 4.05 MIL/uL (4.00-5.50); RED CELL DISTRIBUTION WIDTH 12.6 % (11.0-15.5); WHITE BLOOD COUNT (AUTO) 8.5 K/uL (4.8-10.8)
[2024-05-04 22:36] LABS: POTASSIUM 3.6 mmol/L (3.5-5.1)
[2024-05-04 22:36] LABS: INFLUENZA TYPE A Negative For Type A (NEGATIVE); INFLUENZA TYPE B Negative For Type B (NEGATIVE)
[2024-05-04 22:36] LABS: ADD UA MICROSCOPIC YES
[2024-05-04 22:37] LABS: BACTERIA,URINE FEW /HPF (None Seen); MUCUS,URINE RARE LPF (None Seen); SQUAMOUS EPITHELIAL CELL,UR RARE /HPF (0-2)
[2024-05-04 22:41] LABS: ALBUMIN 3.3 g/dL (3.5-5.0); BILIRUBIN,TOTAL 0.3 mg/dL (0.2-1.0); TOTAL PROTEIN, SERUM 6.8 g/dL (6.0-8.3)
[2024-05-04 22:46] LABS: RAPID GROUP A STREP negative (NEGATIVE)
[2024-05-04 22:51] LABS: SARS-CoV-2, RNA, NAAT NEGATIVE SARS CoV-2 (NEGATIVE)
[2024-05-04] MEDS: SOLU-MEDROL 125MG VIAL IVP ONE (23:05)
[2024-05-05 00:03] VITALS: BP 156/76; PULSE 71; RESP 20; O2SAT 95
[2024-05-05] MEDS: KETOROLAC 15MG/ML VIAL (15MG/ML) IV ONE (00:03)
[2024-05-05] MEDS ORDERED: PRED20TA3 PO (00:10)
[2024-05-05] MEDS ORDERED: AZIT250T9 PO (00:10)
== END 2024-05-05 00:27 | disposition home or self-care (01) ==
LOC: EDH 21:56
DX: J20.9 Acute bronchitis, unspecified (principal); Z20.822 Contact with and (suspected) exposure to COVID-19; B34.9 Viral infection, unspecified; J45.909 Unspecified asthma, uncomplicated; I10 Essential (primary) hypertension; E11.9 Type 2 diabetes mellitus without complications; Z88.1 Allergy status to other antibiotic agents; Z88.0 Allergy status to penicillin; Z79.899 Other long term (current) drug therapy; Z79.2 Long term (current) use of antibiotics; Z79.82 Long term (current) use of aspirin; Z79.84 Long term (current) use of oral hypoglycemic drugs; Z98.890 Other specified postprocedural states
CPT/HCPCS: 99285; 96374; 71045; 87635; 84484; 80053; 85025; 87086; 87880; 87804 ×2; 81001; 36415; 93005; 96375; J2919; J1885